=== PATIENT | male | born 1990 | race Caucasian/White ===

== ENCOUNTER 2025-06-10 09:57 | Outpatient (AMB) | payer BC, SELFPAY ==
--- NOTE | 2025-06-10 10:02 | A.OFFPC_ITS ---
Vital Signs 06/10/25 10:08 Height 6 ft 4 in Weight 208 lb 4 oz BMI 25.3 BP 122/70 Blood Pressure Location Lt brachial Position Sitting Respiration 12 Pulse 72 Pulse Source Pulse Oximeter Temp 97.1 F Temp Source Oral Pulse Oximetry (%) 99 Oxygen Delivery Method Room Air Intake Visit Reasons: est care (rescheduled 2x plz keep) Intake Note: New patient to establish care Bale Stacker Required: No Allergies amoxicillin Allergy (Severe, Verified 06/10/25 10:15) Unknown Medication List - Last Reconciled 06[facility]10/25 [facility] No Known Home Meds Tobacco use date assessed: 06/10/25 Dental Screening Dental Screen Date: 06/10/25 Did you have a dental visit in the last 12 months?: Yes Did you have a dental problem in the last 6 months where you did not have access to dental care?: No Was dental information given to patient?: Patient has dentist HPI HPI Comments History of Present Illness Details 34 y/o M with no medical history. 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 3 cats. No plans for children. Fhx: Mom and Dad alive and well. MGF lung ca (smoker). Denies DM. 1 full sister and 2 1/2 sisters. Alive unsure about health Health Maintenance: Tdap admin today Flu will get @ pharmacy Specialists: None History of Present Illness The patient is a 34-year-old male presenting with establishing care and preventative health maintenance. Alleged allergic reaction to amoxicillin: - Reported hives with amoxicillin at age 8. - No further incidents reported. - Unverified current sensitivity. Potential testosterone deficiency: - Reports reduced sexual desire. - Previous active sexual history. - Occasional solo sexual activity. - No erectile dysfunction or orgasm issu es. - No recognized sexual trauma. Ear wax impaction: - Both ears affected. - No symptomatic complaints. Past Surgical History - Tonsillectomy and adenoidectomy at age 8 due to sleep apnea. - [place] teeth extraction. Family History - Maternal grandfather had lung cancer. - No diabetes or cancer in parents; both parents alive. - Full and half-siblings alive, no repor thao medical issues. Social History - Full-time employment as a contracts ad ministrator. - Lives with fianc?e; plans to nex t year. - Resides in a house with three cats. - No children and plans not to have chibela dren. - No personal substance use reported. - Reports close, non-sexual relationship with fianc?e. Health Maintenance - Planning tetanus immunization today. - Receives seasonal vaccines and COVID b oosters regularly. - Needs lab work for cholesterol and eladio betes screening. - Did not have a flu shot for the (2024). Review of Systems - General: Denies hospitalizations since childhood apart from surgery. - Allergic: Reports hives with amoxicill in in childhood. - Reproductive: Reports reduced libido, no erectile difficulties. - Psychological: Denies anxiety and depr ession, mood stable. Physical Exam General: Well developed, well nourished, in no acute distress. Appears stated age. Head: Normocephalic, atraumatic. Eyes: Pupils are equal, round and reactive to light and accommodation. Conjunctivae are clear. Vision grossly normal. Ears: TMs clear AU, EACS WNL s/p lavage bilat Nose: Patent, without discharge. Neck: Supple, no adenopathy or thyromegaly. Breast: Edu on SBE Lungs: Clear to auscultation bilaterally. No rales, rhonchi or wheeze noted. Good air flow in all cowan. Heart: Regular rate and rhythm. No murmurs, click, rubs or gallops are noted. Abdomen: Bowel sounds present in all quadrants. The abdomen is soft, nontender, with no masses or organomegaly noted. No hernias are noted. : Deferred. Reviewed DEEPAK & recommendations Pulses: Peripheral pulses are equal and palpable bilaterally. Extremities: No clubbing, cyanosis nor edema is noted. Neurologic: Gait and station normal. Cranial Nerves 2-12 intact. Motor strength grossly symmetrical and intact. No sensory loss. Balance normal. Skin: No rashes, ulcers, or lesions noted. Turgor is good. Skin color is good. Hair and nails are without abnormalities. Psych: Normal eye contact, affect and mood appropriate, and normal interactions. Patient is alert and appropriate to context. Mood is stable, no anxiety or depression noted. Results Pending Discussion Notes I conversed with the patient about his concerns regarding potential testosterone deficiency indicated by reduced libido. We discussed ordering blood work to evaluate testosterone levels and the possibility of further evaluation by an filling station attendant or urologist if levels are abnormal. We reviewed the benefits and discomforts of the tetanus vaccine, concluding it is advisable due to potential risk from cat scratches. The patient consented to the vaccination after I explained its long-standing reliability and physical effects. We touched on the potential for couples or individual counseling if persistent emotional barriers are suspected after organic causes are ruled out. Proper follow-up planning was discussed: reviewing lab results through our health arlet and scheduling an annual wellness check. Patient was given time to ask questions. All questions were answered to their satisfaction. Assessment and Plan 1. Alleged allergic reaction to amoxicil zully - Document as childhood reaction. 2. Potential testosterone deficiency - Order testosterone levels. - Consider counseling post-results if no rmal; Uro or Endo referral if abnormal 3. Ear wax impaction - Perform ear irrigation. Tdap admin today; Check labs. Patient Instructions - Get tetanus shot today. - Expect arm soreness; report any severe reactions. - Wait for lab result updates on the Webcollage arlet. - Schedule a yearly checkup. Consent Patient was informed and verbally consented to the use of an ambient scribe for clinic note documentation during this visit. An additional 15 minutes was spent addressing the problem(s) noted at todays visit. This includes time spent before the visit reviewing the chart, time spent during the visit, and time spent after the visit on documentation reviewing laboratory results, diagnostic imaging, medications, performing a medically necessary evaluation, counseling on diagnoses, care coordination, ordering appropriate tests, ordering appropriate medications, review of tests performed by other providers, reporting test results with the patient, communication with other healthcare providers. FORMERLY [facility], [facility] Medical History (Updated 06/10/25 @ 10:30 by Kelly Fall, [facility]) No pertinent family history No pertinent past medical history Surgical History (Updated 06/10/25 @ 10:11 by Kya Cee MA) History of tonsillectomy Social History (Updated 06/10/25 @ 10:10 by Kya Cee MA) Household Members: Significant Other Both parents involved: No Caregiver staying overnight: No Housing: House Are you a primary patient care specialist to a significant other at home: Yes Do you presently have visiting nurse or other home services: No 75 years or older and lives alone: No Alcohol intake: current Alcohol intake frequency: a few times a month Patient Tobacco Use Status: Never used Tobacco e-Cigarette/Vaping Use: Never Used Second Hand Smoke Exposure: No Current occupational status: employed Current occupation: administratror Cognitive needs: No Hearing needs: No Vision needs: No Questionnaire PHQ-9 Over the last 2 weeks, how often have you been bothered by any of the following problems? 1. Little interest or pleasure in doing things: not at all 2. Feeling down, depressed, or hopeless: not at all 3. Trouble falling or staying asleep, or sleeping too much: not at all 4. Feeling tired or having little energy: not at all 5. Poor appetite or overeating: not at all 6. Feeling bad about yourself - or that you are a failure or have let yourself or your family down: not at all 7. Trouble concentrating on things, such as reading the newspaper or watching television: not at all 8. Moving or speaking so slowly that other people could have noticed. Or the opposite - being so fidgety or restless that you have been moving around a lot more than usual: not at all 9. Thoughts that you would be better off or of hurting yourself in some way: not at all Total score: 0 Depression Screening Interpretation: Negative Depression Screening Done: Yes 68166 - PHQ-9 Billing: Yes Source: Developed by Drs. Leandro Mitchell, Bety Alston, Bear Garcia and colleagues, with an educational shelley from [employer]. Thrive Questionnaire Date Thrive assessed: 06/10/25 I am a: Patient What is your living situation today?: I have a steady place to live Within the past 12 months, did the food you bought not last and you didn't have the money to get more?: Never true Within the past 12 months, did you worry whether your food would run out before you got money to buy more?: Never true Do you have trouble paying for medicines?: No Do you have trouble getting transportation to medical appointments?: No Do you have trouble paying your heating and electricity bill?: No Do you have trouble taking care of your child, family member or friend?: No Do you have trouble with day-to-day activities such as bathing, preparing meals, shopping, managing finances, etc.?: No Are you currently unemployed and looking for a job?: No Are you interested in more education?: No Please select the resources that you would like help with: None Currently or been in a relationship where the following occur: I choose not to answer THRIVE Score: 0 AUDIT C Alcohol Use Questionnaire (AUDIT-C) 1. How often do you have a drink containing alcohol?: Monthly or less 2. How many drinks containing alcohol do you have on a typical day when you are drinking?: 1 or 2 3. How often do you have six or more drinks on one occasion?: Never Total Score: 1 Score Reviewed/Action Taken: Yes ANDRZEJ-7 AMB Questionnaire ANDRZEJ-7 Date ANDRZEJ - 7 assessed: 06/10/25 Feeling nervous, anxious, or on edge: 0 = Not at all Not being able to stop or control worryin = Not at all Worrying too much about different things: 0 = Not at all Trouble relaxin = Not at all Being so restless that it is hard to sit still: 0 = Not at all Becoming easily annoyed or irritable: 0 = Not at all Feeling afraid as if something awful might happen: 0 = Not at all Total ANDRZEJ-7 score (0-4 normal; 5-9 mild; 10-14 moderate; 15-21 severe): 0 Source: Developed by Drs. Leandro Mitchell, Bety Alston, Bear Garcia and colleagues, with an educational shelley from [employer]. ANDRZEJ-7 Assessment Billing ANDRZEJ-7 Assessment Tool: ANDRZEJ-7 Assessment 95805 Physical exam (Primary Care) Vital Signs: Last Vital Signs Temp 97.1 F 06/10/25 10:08 Pulse 72 06/10/25 10:08 Resp 12 06/10/25 10:08 BP 122/70 06/10/25 10:08 Pulse Ox 99 06/10/25 10:08 Oxygen Delivery Method Room Air 06/10/25 10:08 BMI result Body Mass Index 25.3 Tobacco/Smoking Status: Tobacco use Status Tobacco use date assessed 06/10/25 06/10/25 10:05 Patient Tobacco Use Status Never used Tobacco 06/10/25 10:10 e-Cigarette/Vaping Use Never Used 06/10/25 10:10 PHQ-9: PHQ-9 Score PHQ-9: Total score 0 06/10/25 10:05 Depression Screening Interpretation: Negative Thrive Assessment: Date of Thrive Assessment Date Thrive assessed 06/10/25 06/10/25 10:05 Currently or been in a relationship where the following occur: I choose not to answer Office Procedures Cerumen Removal From which ear canal was the cerumen removed: bilateral Removal: irrigation Notes: patient tolerated procedure well, no complications and ear canal clear [id number]-[id number] Irrigation/Lavage Coding Level of Care Code New Pt Level 2 (82720) New Pt Prev Care 18-39yr(13620 Diagnoses Encounter to establish care with new provider Z76.89 Laboratory exam ordered as part of routine general medical examination Z00.00 Need for Tdap vaccination Z23 Low libido R68.82 Impacted cerumen, bilateral H61.23 Encounter for general adult medical examination without abnormal findings Z00.00 CPT Codes Office Procedure - CPT: 08848-Grv Irrigation/Lavage ([id number]) Additional Codes ANDRZEJ-7 Assessment Billing - ANDRZEJ-7 Assessment Tool: ANDRZEJ-7 Assessment 81483 ([id number]) PHQ-9 - 73617 - PHQ-9 Billing: Yes ([id number]) Assessment & Plan Assessment & Plan (1) Encounter to establish care with new provider: Code(s): Z76.89 - Persons encountering health services in other specified circumstances (2) Laboratory exam ordered as part of routine general medical examination: Code(s): Z00.00 - Encounter for general adult medical examination without abnormal findings Category: Medical (3) Need for Tdap vaccination: Code(s): Z23 - Encounter for immunization Category: Medical (4) Low libido: Code(s): R68.82 - Decreased libido Category: Medical (5) Impacted cerumen, bilateral: Code(s): H61.23 - Impacted cerumen, bilateral (6) Encounter for general adult medical examination without abnormal findings: Onset Date: ~06/10/25 Code(s): Z00.00 - Encounter for general adult medical examination without abnormal findings Category: Medical Plan . Orders: Orders Comprehensive Met. Panel Today Z00.00 - Encounter for general adult medical examination without abnormal findings Complete Blood Count no Diff Today Z00.00 - Encounter for general adult medical examination without abnormal findings Hemoglobin A1c Today Z00.00 - Encounter for general adult medical examination without abnormal findings Lipid Panel Today Z00.00 - Encounter for general adult medical examination without abnormal findings Microalbumin, Random (w Creat) Today Z00.00 - Encounter for general adult medical examination without abnormal findings Vitamin B12 and Folate Today Z00.00 - Encounter for general adult medical examination without abnormal findings TDaP Immunization Today Z23 - Encounter for immunization TSH reflex Free T4 Today Z00.00 - Encounter for general adult medical examination without abnormal findings Vitamin D 25-OH Total Today Z00.00 - Encounter for general adult medical examination without abnormal findings Testosterone, Free/Total Today R68.82 - Decreased libido Medications: New Boostrix Tdap (diphth,pertus(acell),tetanus) 0.5 mL IM ONCE 0.5 mL 0RF NS Z23 - Encounter for immunization Patient Instructions: What is metabolic dysfunction-associated steatotic liver disease? Metabolic dysfunction-associated steatotic liver disease, or MASLD, is a condition in which fat builds up in the liver. The liver is a big organ in the upper right side of the belly (figure 1). MASLD used to be called nonalcoholic fatty liver disease. When the liver has fat buildup and is inflamed, the condition is called metabolic dysfunction-associated steatohepatitis, or MASH. MASH used to be called nonalcoholic steatohepatitis. This article is mostly about MASH, because this condition can lead to the most problems. What causes MASLD and MASH? Doctors do not know exactly. They do know that it happens more often in some people, such as those who have: ?Excess body weight ?Diabetes, which causes blood sugar levels to get too high ?High cholesterol ?High blood pressure What are the symptoms of MASH? Most people with MASH (when there is liver inflammation) have no symptoms. Some people feel tired or unwell, or have discomfort in the upper belly. Your doctor or nurse might suspect that you have MASH based on the results of your routine blood tests. Will I need more tests? Yes. If your doctor or nurse suspects that you have MASH, you will likely have: ?More blood tests ?An imaging test of the liver ? This might be an ultrasound or MRI scan. Imaging tests create pictures of the inside of the body. Some people need a liver biopsy. During this test, a doctor removes a small sample of tissue from the liver. Then, another doctor looks at the sample under a microscope to check for MASH. A liver biopsy is the only test that can tell for sure if you have MASH. Your doctor might do this test if they are not sure if you have MASH or to see how inflamed your liver is. If your blood tests and imaging tests are normal, you will not need a liver biopsy. How is MASH treated? It is not typically treated directly. But it can improve when related medical conditions get treated. For example, losing weight and controlling high blood sugar and cholesterol can help improve MASH. Your doctor can: ?Help you lose weight, if you have excess body weight ? If your doctor recommends losing weight, they can help you make a plan to do this safely. It's important not to lose weight too quickly. Do not lose more than 2 pounds (approximately 1 kilogram) a week. ?Treat your high blood sugar, if you have diabetes ?Treat your high cholesterol, if you have it Making these changes has benefits besides helping with MASH. These changes can also lower your chances of having a heart attack or stroke. That's important because people with MASH are often also at risk for heart disease and stroke. Your doctor might recommend other things, too. For example: ?You might get vaccines to protect against hepatitis A and B. These are infections that can harm your liver. ?If you have MASH but do not also have diabetes, your doctor might suggest that you take vitamin E. A few studies suggest that vitamin E can reduce some of the liver damage and inflammation that happens with MASH. But there are also studies that suggest that high doses of vitamin E increase the risk of . So do not take vitamin E unless your doctor or nurse recommends it. What can I do on my own? You can: ?Take all of your medicines as instructed. ?Avoid alcohol. Alcohol can make liver problems worse. ?Eat a healthy diet with plenty of vegetables, fruits, and whole grains. ?Get regular physical activity. Even gentle activity, like walking, is good for your health. ?Go to all of your doctor's appointments. Does MASH get worse over time? It might. Sometimes, people with MASH get something called cirrhosis. This means serious scarring of the liver. Cirrhosis can cause different symptoms, such as swelling in the legs, trouble breathing, or feeling tired. People who have MASH need to see their doctor for regular check-ups. Your doctor will do follow-up tests regularly. These usually include blood tests. When should I call the doctor? Call your doctor or nurse if you have symptoms of cirrhosis. These can include: ?Blood in your bowel movements or vomit ?Symptoms of infection, such as fever over 100.4?F (38?C) or chills ?Belly pain ?Swollen legs or ankles ?Trouble breathing ?Extreme tiredness ?Confusion ?Yellowing of the skin or whites of your eyes, called jaundice Health screenings for men You should visit your health care provider regularly, even if you feel healthy. The purpose of these visits is to: Screen for medical issues Assess your risk for future medical problems Encourage a healthy lifestyle Update vaccinations and other preventive care services Help you get to know your provider in case of an illness Information Even if you feel fine, you should still see your provider for regular checkups. These visits can help you avoid problems in the future. For example, the only way to find out if you have high blood pressure is to have it checked regularly. High blood sugar and high cholesterol level also may not have any symptoms in the early stages. Simple blood tests can check for these conditions. There are specific times when you should see your provider or receive specific health screenings. The [place] Preventive Services Task Force publishes a list of recommended screenings. Below are screening guidelines for men ages 40 to 64. BLOOD PRESSURE SCREENING Have your blood pressure checked at least once every year. Watch for blood pressure screenings in your area. Ask your provider if you can stop in to have your blood pressure checked. Ask your provider if you need your blood pressure checked more often if: You have diabetes, heart disease, kidney problems, or are overweight or have certain other health conditions You have a first-degree relative with high blood pressure You are Black Your blood pressure top number is from 120 to 129 mm Hg, or the bottom number is from 70 to 79 mm Hg If the top number is 130 mm Hg or greater or the bottom number is 80 mm Hg or greater, this is considered stage 1 hypertension. Schedule an appointment with your provider to learn how you can lower your blood pressure. Effects of age on blood pressure CHOLESTEROL SCREENING Cholesterol screening should begin at age 35 for men with no known risk factors for coronary heart disease. Repeat cholesterol screening should take place: Every 5 years for men with normal cholesterol levels More often if changes occur in lifestyle (including weight gain and diet) More often if you have diabetes, heart disease, kidney problems, or certain other conditions COLORECTAL CANCER SCREENING If you are under age 45, talk to your provider about getting screened. You may need to be screened if you have a strong family history of colon cancer or polyps. Screening may also be considered if you have risk factors such as a history of inflammatory bowel disease or polyps. If you are age 45 to 75, you should be screened for colorectal cancer. There are several screening tests available: A stool-based fecal occult blood (gFOBT) or fecal immunochemical test (FIT) every year A stool sDNA test every 1 to 3 years Flexible sigmoidoscopy every 5 years or every 10 years with stool testing FIT done every year CT colonography (virtual colonoscopy) every 5 years Colonoscopy every 10 years You may need a colonoscopy more often if you have risk factors for colorectal cancer, such as: Ulcerative colitis A personal or family history of colorectal cancer A history of growths in your colon called adenomatous polyps DENTAL EXAM Go to the dentist once or twice every year for an exam and cleaning. Your dentist will evaluate if you have a need for more frequent visits. DIABETES SCREENING All adults who do not have risk factors for diabetes should be screened starting at age 35 and repeated every 3 years. If you have other risk factors for diabetes, such as a first degree relative with diabetes, overweight or obesity, high blood pressure, prediabetes, or a history of heart disease, you may be tested more often. If you are overweight and have other risk factors, such as high blood pressure and are planning to become , screening is recommended. EYE EXAM Have an eye exam every 2 to 4 years ages 40 to 54 and every 1 to 3 years ages 55 to 64. Your provider may recommend more frequent eye exams if you have vision problems or glaucoma risk. Have an eye exam that includes an examination of your retina (back of your eye) at least every year if you have diabetes. IMMUNIZATIONS Commonly needed vaccines include: Flu shot: get one every year COVID-19 vaccine: ask your provider what is best for you Tetanus-diphtheria and acellular pertussis (Tdap) vaccine: have as one of your tetanus-diphtheria vaccines if you did not receive it as an adolescent Tetanus-diphtheria: have a booster (or Tdap) every 10 years Varicella vaccine: receive 2 doses if you never had chickenpox or the varicella vaccine and were born in 1980 or after Hepatitis B vaccine: receive 2, 3, or 4 doses, depending on your exact circumstances, if you did not receive these as a child or adolescent, until age 59 Shingles (herpes zoster) vaccine: at or after age 50 Ask your provider if you should receive other immunizations, especially if you have certain medical conditions, such as diabetes or are at increased risk for some diseases such as pneumonia. INFECTIOUS DISEASE SCREENING Screening for hepatitis C: all adults ages 18 to 79 should get a one-time test for hepatitis C. Screening for human immunodeficiency virus (HIV): all people ages 15 to 65 should get a one-time test for HIV. Depending on your lifestyle and medical history, you may need to be screened for infections such as syphilis, chlamydia, and other infections. LUNG CANCER SCREENING You should have an annual screening for lung cancer with low-dose computed tomography (LDCT) if: You are age 50 to 80 years AND You have a 20 pack-year smoking history AND You currently smoke or have quit within the past 15 years OSTEOPOROSIS SCREENING If you are age 50 to 64 and have risk factors for osteoporosis, you should discuss screening with your provider. Risk factors can include long-term steroid use, low body weight, smoking, heavy alcohol use, having a fracture after age 50, or a family history of hip fracture or osteoporosis. Osteoporosis PHYSICAL EXAM All adults should visit their provider from time to time, even if they are healthy. The purpose of these visits is to: Screen for diseases Assess risk of future medical problems Encourage a healthy lifestyle Update vaccinations and other preventive care services Maintain a relationship with a provider in case of an illness Your height, weight, and body mass index (BMI) should be checked at every exam. During your exam, your provider may ask you about: Depression and anxiety Diet and exercise Alcohol and tobacco use Safety, such as use of seat belts and smoke detectors Your medicines and risk for interactions PROSTATE CANCER SCREENING If you're 55 through 69 years old, before having the test, talk to your provider about the pros and cons of having a PSA test. Ask about: Whether screening decreases your chance of dying from prostate cancer. Whether there is any harm from prostate cancer screening, such as side effects from testing or overtreatment of cancer when discovered. Whether you have a higher risk of prostate cancer than others. If you are age 55 or younger, screening is not generally recommended. You should talk with your provider about if you have a higher risk for prostate cancer. Risk factors include: Having a family history of prostate cancer (especially a brother or father) Being If you choose to be tested, the PSA blood test is repeated over time (yearly or less often), though the best frequency is not known. Prostate examinations are no longer routinely done on men with no symptoms. Prostate cancer SKIN EXAM Your provider may check your skin for signs of skin cancer, especially if you're at high risk. People at high risk include those who have had skin cancer before, have close relatives with skin cancer, or have a weakened immune system. TESTICULAR EXAM The [place] Preventive Services Task Force (USPSTF) now recommends against performing testicular self-exams. Doing testicular self-exams has been shown to have little to no benefit.
[2025-06-10 10:08] VITALS: BP 122/70; PULSE 72; RESP 12; TEMP 36.2; O2SAT 99; BMI 25.3
== END 2025-06-10 10:49 | disposition home or self-care (01) ==
LOC: HO.HMCFM 09:58
PROVIDERS: PCP Nurse Practitioner Family; Visit Provider Nurse Practitioner Family
DX: Z00.00 Encounter for general adult medical examination without abnormal findings (principal); R68.82 Decreased libido; H61.23 Impacted cerumen, bilateral; Z76.89 Persons encountering health services in other specified circumstances; Z23 Encounter for immunization

== ENCOUNTER 2025-06-10 09:57 | Outpatient (REF) | payer BC, SELFPAY ==
[2025-06-10 14:47] LABS: Hematocrit 43.6 % (42.0-52.0); Hemoglobin 15.1 g/dl (14.0-18.0); Mean Corpuscular HGB Conc 34.6 g/dl (31.0-36.0); Mean Corpuscular Hemoglobin 31.0 pg (27.0-33.0); Mean Corpuscular Volume 89.5 fL (80.0-98.0); NRBC Abs Auto 0.000 X10*3/uL (0.0-0.012); NRBC Pct Auto 0.0 /100WBC (0.0-0.2); Platelet Count 262 X10*3/uL (160-400); Red Blood Count 4.87 X10*6/uL (4.60-5.80); White Blood Count 8.6 X10*3/uL (4.8-10.8)
[2025-06-10 14:58] LABS: Hemoglobin A1C 128.1937 umol/L
[2025-06-10 15:16] LABS: Alanine Aminotransferase 28 U/L (0-40); Albumin Level 4.6 g/dL (3.5-5.0); Alkaline Phosphatase 45 U/L (39-117); Anion Gap 11 (12-20); Aspartate Amino Transferase 27 U/L (5-37); Blood Urea Nitrogen 16 mg/dL (9-16); Calcium 9.3 mg/dL (8.4-10.2); Carbon Dioxide 30 mmol/L (22-29); Chloride 105 mmol/L (96-108); Cholesterol 160 mg/dL (<200); Estimated Glomerular Filt Rate > 60; HDL Cholesterol 47 mg/dL (>40); Potassium 3.9 mmol/L (3.3-5.1); Sodium 142 mmol/L (135-145); Total Protein 7.3 g/dL (6.5-8.0); Triglycerides 73 mg/dL (<150)
[2025-06-10 15:29] LABS: Microalbum/Creatinine Ratio Ur 4.5 ug/mg cr (<30)
[2025-06-10 15:35] LABS: Folate 7.2 ng/mL (> or = 4.0); Vitamin B12 614 pg/mL (200-900)
[2025-06-15 16:48] LABS: Testosterone, Free 107.1 pg/mL (35.0-155.0)
== END 2025-06-10 09:58 | disposition home or self-care (01) ==
LOC: HO.WFDLDS 09:57
PROVIDERS: Visit Provider Nurse Practitioner Family
DX: Z23 Encounter for immunization (principal); Z76.89 Persons encountering health services in other specified circumstances; Z00.00 Encounter for general adult medical examination without abnormal findings; R68.82 Decreased libido; H61.23 Impacted cerumen, bilateral
CPT/HCPCS: 36415; 69209; 80053; 80061; 82043; 82306; 82570; 82607; 82746; 83036; 84402; 84403; 84443; 85027; 90471; 90715; 96127